=== PATIENT | female | born 1995 | race Caucasian/White ===

== ENCOUNTER → 2017-06-15 | Outpatient (CLI) | payer OTHER ==
[~2017-06-15] MED LIST: ALBU90OI INH; ALPR.25 PO; ALPR.5 PO; BIRTH CONTROL; HYDHCL25 PO; HYDR1TAB94 PO; IBUP800 PO; Micronor; Norco 5-325 Ta1 EACH PO; OXYACE5T PO; POLTRIOPSO OU; PROBIOTIC1 EAC1 PO; SERT50 PO; Sudogest30 MG PO; TEMA30 PO; TEMA7.5 PO; TRAM50 PO; TRAZ50 PO; Vistaril25 MG PO; Zofran Odt4 MG PO; Zofran Odt4 MG SL
[2017-06-16 08:29] LABS: Source Cervix
== END | disposition home or self-care (01) ==
LOC: LAB 15:21 → LAB SHORT 15:21
PROVIDERS: Obstetrics & Gynecology
DX: Z12.4 Encounter for screening for malignant neoplasm of cervix (principal); R30.0 Dysuria
CPT/HCPCS: 87077; 87086; 87186; G0123

== ENCOUNTER 2018-11-20 08:49 | Emergency (ER) | payer OTHER ==
[2018-11-21] MEDS ORDERED: LIDO700A20 TOP (01:17)
== END 2018-11-20 10:37 | disposition left against medical advice (07) ==
LOC: ER 08:49
DX: Z53.21 Procedure and treatment not carried out due to patient leaving prior to being seen by health care provider (principal)

== ENCOUNTER 2018-11-20 22:56 | Emergency (ER) | payer OTHER ==
[~2018-11-20] VITALS: Ht 165.1 cm; Wt 54.4 kg
[2018-11-21] MEDS ORDERED: LIDO700A20 TOP (01:17)
== END 2018-11-21 01:25 | disposition home or self-care (01) ==
LOC: ER 22:56
DX: S39.012A Strain of muscle, fascia and tendon of lower back, initial encounter (principal); F32.9 Major depressive disorder, single episode, unspecified; Z87.891 Personal history of nicotine dependence; Z91.030 Bee allergy status; Z79.899 Other long term (current) drug therapy; Z79.891 Long term (current) use of opiate analgesic; W10.9XXA Fall (on) (from) unspecified stairs and steps, initial encounter
CPT/HCPCS: 72100; 96372; 99283; J1885

== ENCOUNTER 2019-03-03 17:03 | Emergency (ER) | payer OTHER ==
[~2019-03-03] VITALS: Ht 165.1 cm; Wt 57.6 kg
[~2019-03-03 17:03] MED LIST changes: +LIDO700A20 TOP
[2019-03-03] MEDS ORDERED: OLANZAPINE15 MG PO (17:46)
[2019-03-03] MEDS ORDERED: LORAZEPAM0.5 MG PO (17:46)
[2019-03-03] MEDS ORDERED: LAMOTRIGINE100 M1 PO (17:46)
[2019-03-03] MEDS ORDERED: KETO10 PO (18:13)
== END 2019-03-03 18:22 | disposition home or self-care (01) ==
LOC: ER 17:03
DX: S16.1XXA Strain of muscle, fascia and tendon at neck level, initial encounter (principal); F32.9 Major depressive disorder, single episode, unspecified; F43.10 Post-traumatic stress disorder, unspecified; F41.9 Anxiety disorder, unspecified; Z91.030 Bee allergy status; V89.2XXA Person injured in unspecified motor-vehicle accident, traffic, initial encounter
CPT/HCPCS: 96372; 99283-25; J1885

== ENCOUNTER → 2020-10-01 | Outpatient (CLI) | payer OTHER ==
[~2020-10-01] MED LIST changes: +KETO10 PO; +LAMOTRIGINE100 M1 PO; +LORAZEPAM0.5 MG PO; +OLANZAPINE15 MG PO
[2020-10-03 04:08] LABS: CHLAMYDIA TRACHOMATIS, NAA Negative (Negative)
== END | disposition home or self-care (01) ==
LOC: LAB SHORT 12:49
PROVIDERS: Obstetrics & Gynecology
DX: Z34.81 Encounter for supervision of other normal pregnancy, first trimester (principal)
CPT/HCPCS: 87491; 87591

== ENCOUNTER → 2021-04-23 | Outpatient (CLI) | payer OTHER | END | disposition home or self-care (01) | LOC: LAB SHORT 16:24 | DX: Z34.83 Encounter for supervision of other normal pregnancy, third trimester (principal); Z3A.36 36 weeks gestation of pregnancy | CPT/HCPCS: 87081; 87150 ==

== ENCOUNTER 2021-05-20 05:50 | Inpatient (IN) | payer OTHER ==
[~2021-05-20] VITALS: Ht 165.1 cm; Wt 68.6 kg
[2021-05-20 06:24] LABS: BASOPHILS ABSOLUTE AUTO 0.04 K/mm3 (0.00-0.23); BASOPHILS PERCENT AUTO 0 % (0-2); EOSINOPHILS ABSOLUTE AUTO 0.19 K/mm3 (0.00-0.68); EOSINOPHILS PERCENT AUTO 1 % (0-6); Hematocrit 32.5 % (33.0-51.0); IMMATURE GRAN PERCENT AUTO 1 % (0-1); LYMPHOCYTES ABSOLUTE AUTO 3.14 K/mm3 (0.84-5.20); LYMPHOCYTES PERCENT AUTO 18 % (21-46); MONOCYTES ABSOLUTE AUTO 1.03 K/mm3 (0.16-1.47); MONOCYTES PERCENT AUTO 6 % (4-13); Mean Corpuscular HGB 29.8 pg (26.0-34.0); Mean Corpuscular HGB Conc 33.8 g/dL (31.5-36.5); Mean Corpuscular Volume 88 fL (80-100); Mean Platelet Volume 8.9 fL (9.1-12.4); NEUTROPHILS ABSOLUTE AUTO 13.17 K/mm3 (1.96-9.15); NEUTROPHILS PERCENT AUTO 75 % (41-73); Platelet Count 271 K/mm3 (150-400); RDW Coefficient Variation 13.2 % (11.7-14.2); RDW Standard Deviation 42.5 fL (35.1-46.3); Red Blood Cell Count 3.69 M/mm3 (3.80-5.20); White Blood Cell Count 17.67 K/mm3 (4.00-11.30)
[2021-05-20 07:05] LABS: Influenza A, PCR NEGATIVE (NEGATIVE); Influenza B, PCR NEGATIVE (NEGATIVE); Resp Syncytial Virus, PCR NEGATIVE (NEGATIVE); SARS-Cov-2 (COVID-19) PCR, MMC NEGATIVE (NEGATIVE)
[2021-05-21 05:15] LABS: BASOPHILS ABSOLUTE AUTO 0.04 K/mm3 (0.00-0.23); BASOPHILS PERCENT AUTO 0 % (0-2); EOSINOPHILS ABSOLUTE AUTO 0.17 K/mm3 (0.00-0.68); EOSINOPHILS PERCENT AUTO 1 % (0-6); Hematocrit 29.4 % (33.0-51.0); Hemoglobin 9.7 g/dL (11.5-16.0); IMMATURE GRAN ABSOLUTE AUTO 0.07 K/mm3 (0.00-0.10); IMMATURE GRAN PERCENT AUTO 1 % (0-1); LYMPHOCYTES ABSOLUTE AUTO 3.77 K/mm3 (0.84-5.20); LYMPHOCYTES PERCENT AUTO 28 % (21-46); MONOCYTES ABSOLUTE AUTO 0.89 K/mm3 (0.16-1.47); MONOCYTES PERCENT AUTO 7 % (4-13); Mean Corpuscular HGB 29.7 pg (26.0-34.0); Mean Corpuscular Volume 90 fL (80-100); NEUTROPHILS ABSOLUTE AUTO 8.63 K/mm3 (1.96-9.15); NEUTROPHILS PERCENT AUTO 64 % (41-73); Platelet Count 216 K/mm3 (150-400); RDW Coefficient Variation 13.3 % (11.7-14.2); RDW Standard Deviation 44.1 fL (35.1-46.3); Red Blood Cell Count 3.27 M/mm3 (3.80-5.20); White Blood Cell Count 13.57 K/mm3 (4.00-11.30)
--- NOTE | 2021-05-21 08:48 | NUR ---
PT UP AMBULATING IN ROOM. PT C/O BURNING ON VAGINA WITH URINATION. ENCOURAGED TO USE LUKE BOTTLE WHEN VOIDING TO DILUTE URINE. PT R/T BED. REPORTS SHE JUST FED NB.
--- NOTE | 2021-05-21 10:06 | NUR ---
IN ROOM TO ROUND ON PATIENT. PT APPEARS TO BE SLEEPING BUT WHEN I ENTER THE ROOM PT STARTS MOANING IN THE BED COMPLAINING OF PAIN. ROOM IS DARK. S.O. HOLDING NB IN A CHAIR IN THE CORNER. PT CONTINUES TO ROLL AROUND IN THE BED C/O PAIN. BROUGHT IN IBUPROPHEN. PT REPORTS PAIN 8/. I ASKED PT TO TELL ME WHERE THE PAIN WAS AND TO DESCRIBE IT. PT JUST KEEPS RUBBING HER ENTIRE ABD SAYING HER CORE FEELS LIKE SOMEONE IS KICKING HER. WE DISCUSSED CRAMPING BEING WORSE AFTER EACH CHILD BUT THIS IS CONCERNING BECAUSE IT APPEARS THE PATIENT ISN'T TAKING CARE OF HERSELF. THE ROOM HAS TRASH ALL OVER AN DIRTY LINEN LYING ALL OVER. PT THEN SAYS SHE IS FINE AND THAT SHE KNOWS THIS IS NORMAL. PT UP TO BRP BUT MOANS IN THE BATHROOM. THEN SHE IS VERY THANKFUL AND TALKING VERY KINDLY TO ME. ICE PACK GIVEN FOR PERINEUM. BLEEDING AND PERINEUM ALL APPEAR NORMAL. PT STATES SHE WILL JUST TALK TO DR SILVA ABOUT THIS WHEN SHE COMES.
--- NOTE | 2021-05-21 10:45 | NUR ---
PT NOW SITTING UP IN CHAIR, SMILING, ATTEMPTING TO BF NB. REPORTS PAIN 09/15. PT C/O EPIDURAL INJECTION SITE BEING PAINFUL. OFFERED HEAT OR ICE TO RELIEVE PAIN. PT STATES SHE WILL JUST TALK TO DR. SILVA ABOUT IT. INJECTION SITE LOOKS CLEAR, NO BRUISING OR S/S OF INFECTION NOTED. NO SWELLING. ENCOURAGED PT TO READ OVER D/C INSTRUCTIONS PROVIDED.
--- NOTE | 2021-05-21 12:02 | NUR ---
PT ACTING MORE APPROPRIATE WITH SELF AND NB CARE. ASKING FOR ASSISTANCE WITH BF. APPEARS MORE COMFORTABLE. ENCOURAGED POS. PT DECLINED ANY FOOD AT THIS TIME. ENCOURAGED PT TO TAKE CARE OF HERSELF. PT REPORTS SHE STILL HASN'T GOTTEN TO READING OVER D/C INSTRUCTIONS.
[2021-05-21] MEDS ORDERED: 1/2 NS 250ml250 ML (14:42)
[2021-05-21] MEDS ORDERED: IBUP800 PO (14:42)
[2021-05-21] MEDS ORDERED: PRENATAL TABLE1 EAC2 PO (14:42)
--- NOTE | 2021-05-21 15:02 | NUR ---
SPOKE WITH DR. MCGEE ABOUT POTENTIAL D/C HOME. PT TRENA SELF AND NB CARE WELL. PT DENIES PAIN THAT IS NOT TOLERABLE. PT ANXIOUS TO GO HOME. D/C TEACHING DONE. PT ASKS APPROPRIATE QUESTIONS.
--- NOTE | 2021-05-21 15:10 | NUR ---
PT STATES SHE HAS NO PAIN AT THIS TIME. INITIALLY PT REQUESTED A SCRIPT FOR IBUPROFEN. DISCUSSED USING OVER THE COUNTER IBUPROFEN AT HOME FOR PAIN. PT VERBALIZES THAT SHE HAS THAT AT HOME AND DOESN'T NEED A SCRIPT.
== END 2021-05-21 15:30 | disposition home or self-care (01) | DRG 807 ==
LOC: OBS 05:50 → BC 06:10
PROVIDERS: ADMIT Obstetrics & Gynecology
PROC: 10E0XZZ Delivery of Products of Conception, External Approach (ICD-10-PCS; principal; 2021-05-20)
DX: O77.0 Labor and delivery complicated by meconium in amniotic fluid (principal); Z37.0 Single live birth; Z20.822 Contact with and (suspected) exposure to COVID-19; Z67.40 Type O blood, Rh positive; Z3A.38 38 weeks gestation of pregnancy; Z91.030 Bee allergy status; Z91.038 Other insect allergy status
CPT/HCPCS: 0241U; 36415; 51702; 85025; 86850; 86900; 86901; A9270; J0290; J1885; J2001; J2210; J2405; J3010; J7120

== ENCOUNTER 2021-10-11 13:51 | Emergency (ER) | payer OTHER ==
[~2021-10-11] VITALS: Ht 162.6 cm; Wt 56.2 kg
[~2021-10-11 13:51] MED LIST changes: +1/2 NS 250ml250 ML; +PRENATAL TABLE1 EAC2 PO
[2021-10-11 15:24] LABS: BASOPHILS ABSOLUTE AUTO 0.07 K/mm3 (0.00-0.23); BASOPHILS PERCENT AUTO 1 % (0-2); EOSINOPHILS ABSOLUTE AUTO 0.31 K/mm3 (0.00-0.68); EOSINOPHILS PERCENT AUTO 4 % (0-6); Hemoglobin 13.4 g/dL (11.5-16.0); IMMATURE GRAN ABSOLUTE AUTO 0.02 K/mm3 (0.00-0.10); IMMATURE GRAN PERCENT AUTO 0 % (0-1); LYMPHOCYTES ABSOLUTE AUTO 3.72 K/mm3 (0.84-5.20); LYMPHOCYTES PERCENT AUTO 43 % (21-46); MONOCYTES ABSOLUTE AUTO 0.69 K/mm3 (0.16-1.47); MONOCYTES PERCENT AUTO 8 % (4-13); Mean Corpuscular HGB 28.5 pg (26.0-34.0); Mean Corpuscular HGB Conc 33.5 g/dL (31.5-36.5); Mean Corpuscular Volume 85 fL (80-100); Mean Platelet Volume 8.2 fL (9.1-12.4); NEUTROPHILS ABSOLUTE AUTO 3.95 K/mm3 (1.96-9.15); NEUTROPHILS PERCENT AUTO 45 % (41-73); Platelet Count 431 K/mm3 (150-400); RDW Standard Deviation 40.4 fL (35.1-46.3); White Blood Cell Count 8.76 K/mm3 (4.00-11.30)
[2021-10-11 15:47] LABS: Alanine Aminotransfer (ALT/SGP 36 U/L (12-78); Albumin, Blood 4.6 g/dL (3.4-5.0); Albumin/Globulin Ratio 1.5 (0.8-1.8); Alk Phos 102 U/L (50-136); Anion Gap 6 mmol/L (6-16); Aspartate Aminotrans (AST/SGOT 21 U/L (12-37); Beta HCG, Quantitative, Serum <1 mIU/mL (0-3); Bilirubin, Total 0.4 mg/dL (0.1-1.0); Blood Urea Nitrogen 13 mg/dL (8-24); Bun/Creatinine Ratio 16.4 (12.0-20.0); CO2, Blood 25 mmol/L (21-32); Calcium, Blood 9.6 mg/dL (8.5-10.1); Chloride, Blood 107 mmol/L (98-108); Glomerular Filtration Rate 103 (60-); Glucose, Blood 85 mg/dL (70-99); Potassium, Blood 4.5 mmol/L (3.5-5.5); Sodium, Blood 138 mmol/L (136-145); Total Protein, Blood 7.6 g/dL (6.4-8.2)
[2021-10-11 16:11] LABS: Source, Urine Clean Catch
[2021-10-11 16:14] LABS: Appearance, Urine Clear (Clear); Bilirubin, Urine Neg (Neg); Blood, Urine 2+ (Neg); Color, Urine Yellow (P-Yellow); Glucose Qualitative, Urine Neg (Neg); Ketones, Urine Neg (Neg); Leukocyte Esterase, Urine Neg (Neg); Nitrite, Urine Neg (Neg); Protein, Urine Neg (Neg); Specific Gravity, Urine 1.025 (1.003-1.022); Urobilinogen, Urine NORM (Normal)
[2021-10-11 16:28] LABS: Bacteria Few /hpf; Mucus Light (0-Heavy); Squamous Epithelial Cells Few /hpf (Few); White Blood Cells, Urine 0-2 /hpf (0-5)
== END 2021-10-11 16:36 | disposition home or self-care (01) ==
LOC: ER 13:51
PROVIDERS: Emergency Medicine
DX: N93.9 Abnormal uterine and vaginal bleeding, unspecified (principal); Z91.030 Bee allergy status
CPT/HCPCS: 36415; 80053; 81001; 84702; 85025

== ENCOUNTER 2022-01-30 09:35 | Emergency (ER) | payer OTHER ==
[~2022-01-30] VITALS: Ht 165.1 cm; Wt 63.5 kg
[2022-01-30] MEDS ORDERED: KETO10 PO (12:20)
[2022-01-30] MEDS ORDERED: Percocet 5-3251 EACH PO (12:20)
== END 2022-01-30 12:57 | disposition home or self-care (01) ==
LOC: ER 09:35
DX: S52.122A Displaced fracture of head of left radius, initial encounter for closed fracture (principal); Z91.030 Bee allergy status; W18.30XA Fall on same level, unspecified, initial encounter
CPT/HCPCS: 73080; A9270

== ENCOUNTER → 2022-12-31 | Outpatient (CLI) | payer OTHER ==
[~2022-12-31] MED LIST changes: +Percocet 5-3251 EACH PO
[2022-12-31 19:57] LABS: Total Protein, Blood 7.7 g/dL (6.4-8.2)
== END | disposition home or self-care (01) ==
LOC: LAB 16:30 → LAB SHORT 16:30
PROVIDERS: Family Medicine
DX: G62.9 Polyneuropathy, unspecified (principal)
CPT/HCPCS: 82607; 82746; 84155; 85651